=== PATIENT | female | born 1985 | race Caucasian/White ===

== ENCOUNTER 2017-08-18 16:26 | Outpatient (CLI) | payer BC ==
[~2017-08-18] VITALS: Ht 177.8 cm; Wt 144.5 kg
[~2017-08-18 16:26] MED LIST: ATIVAN1 MG PO; BENADRYL25 MG PO; ENDOCET 5-3251 EACH PO; FENUGREEK500 MG PO; IBUPROFEN800 MG PO; LECITHIN1200 M1 PO; METOCLOPRAMIDE10 MG PO; ONDANSETRON HCL8 MG PO; PRENATAL TABLE1 EAC3 PO; VICODIN PO; VITAFOL-OB+DHA1 EACH PO; ZYRTEC10 M3 PO
[2017-08-18 17:05] VITALS: BP 120/78
[2017-08-18 17:56] LABS: EOSINOPHIL (%) 0.8 % (0-5); EOSINOPHIL COUNT 0.1 K/uL (0-0.3); HEMATOCRIT 35.3 % (36.0-46.0); IMMATURE GRANULOCYTE (%) 0.7 % (0.0-0.7); IMMATURE GRANULOCYTE COUNT 0.1 K/uL; INSTRUMENT ABS NEUTROPHIL CT 5.2 K/uL; LYMPHOCYTE COUNT 1.6 K/uL (1.0-2.8); MCH 33.2 PG (29.0-34.0); MCHC 34.8 G/DL (30.0-36.0); MCV 95.4 FL (83-99); MEAN PLAT.VOLUME 11.1 uM^3 (9.5-12.4); MONOCYTE (%) 6.9 % (3-12); MONOCYTE COUNT 0.5 K/uL (0-0.8); NEUTROPHIL (%) 70.2 % (45-76); NEUTROPHIL COUNT 5.2 K/uL (1.8-6.4); PLATELET COUNT 206 K/uL (156-360); RBC DIS.WIDTH-CV 12.9 % (11.8-14.6); RBC DIS.WIDTH-SD 44.4 % (39-53); WHITE BLOOD COUNT 7.3 K/uL (4.1-10.2)
[2017-08-19] MEDS ORDERED: ENDOCET 5-3251 EACH PO (11:39)
[2017-08-19] MEDS ORDERED: IBUPROFEN800 MG PO (11:39)
== END 2017-08-18 19:04 | disposition home or self-care (01) ==
LOC: LDRP-OP 16:26 → 2WEST 16:27 → LDRP-OP 21:04
PROVIDERS: Advanced Practice Midwife
DX: O26.893 Other specified pregnancy related conditions, third trimester (principal); O99.213 Obesity complicating pregnancy, third trimester; E66.01 Morbid (severe) obesity due to excess calories; Z3A.39 39 weeks gestation of pregnancy
CPT/HCPCS: 59025; 85025; 86850; 86900; 86901; G0378

== ENCOUNTER 2017-08-19 09:30 | Inpatient (IN) | payer BC ==
[2017-08-19] VITALS (8 sets, daily range): BP systolic 110–122; BP diastolic 63–83
[~2017-08-19] VITALS: Ht 177.8 cm; Wt 144.0 kg
[2017-08-19] MEDS ORDERED: ENDOCET 5-3251 EACH PO (11:39)
[2017-08-19] MEDS ORDERED: IBUPROFEN800 MG PO (11:39)
[2017-08-20 06:06] LABS: EOSINOPHIL (%) 0.4 % (0-5); HEMATOCRIT 32.2 % (36.0-46.0); IMMATURE GRANULOCYTE (%) 0.7 % (0.0-0.7); IMMATURE GRANULOCYTE COUNT 0.1 K/uL; INSTRUMENT ABS NEUTROPHIL CT 8.3 K/uL; LYMPHOCYTE COUNT 1.8 K/uL (1.0-2.8); MCH 33.4 PG (29.0-34.0); MCHC 34.5 G/DL (30.0-36.0); MEAN PLAT.VOLUME 11.6 uM^3 (9.5-12.4); MONOCYTE (%) 7.4 % (3-12); MONOCYTE COUNT 0.8 K/uL (0-0.8); NEUTROPHIL (%) 74.7 % (45-76); NEUTROPHIL COUNT 8.3 K/uL (1.8-6.4); PLATELET COUNT 199 K/uL (156-360); RBC DIS.WIDTH-CV 13.2 % (11.8-14.6); RBC DIS.WIDTH-SD 46.8 % (39-53); RED BLOOD COUNT 3.32 M/uL (3.80-5.20); WHITE BLOOD COUNT 11.1 K/uL (4.1-10.2)
[2017-08-20 08:00] VITALS: BP 103/56
[2017-08-20 11:00] VITALS: BP 117/63
[2017-08-20 15:30] VITALS: BP 107/55
[2017-08-20 19:48] VITALS: BP 127/60
[2017-08-21 00:01] VITALS: BP 110/56
[2017-08-21 03:25] VITALS: BP 98/56
== END 2017-08-21 16:00 | disposition home or self-care (01) | DRG 765 ==
LOC: LDRP-OP 09:30 → 2WEST 09:31 → LDRP-OP 09-23 20:21
PROVIDERS: Obstetrics & Gynecology
PROC: 10D00Z1 Extraction of Products of Conception, Low, Open Approach (ICD-10-PCS; principal; 2017-08-19)
DX: O36.63X0 Maternal care for excessive fetal growth, third trimester, not applicable or unspecified (principal); O99.214 Obesity complicating childbirth; E66.01 Morbid (severe) obesity due to excess calories; Z68.41 Body mass index [BMI] 40.0-44.9, adult; Z3A.39 39 weeks gestation of pregnancy; Z37.0 Single live birth
CPT/HCPCS: 59025; 85025; 86850; 86900; 86901; 88307; G0378; J0690; J2274; J2405; J7120

== ENCOUNTER 2018-04-18 19:19 | Emergency (ER) | payer BC ==
[~2018-04-18] VITALS: Ht 177.8 cm; Wt 130.9 kg
[2018-04-18] MEDS ORDERED: CROMOLYN SODIUM10 ML BOTH EYES (21:28)
[2018-04-18 21:46] VITALS: BP 123/69
== END 2018-04-18 21:46 | disposition home or self-care (01) ==
LOC: EME 19:19
DX: H10.10 Acute atopic conjunctivitis, unspecified eye (principal); H57.04 Mydriasis; T49.5X5A Adverse effect of ophthalmological drugs and preparations, initial encounter
CPT/HCPCS: 99281; 99284